=== PATIENT | male | born 1935 | race Caucasian/White ===

== ENCOUNTER 2017-11-16 11:44 | Emergency (ER) | payer MEDICARE, BC ==
--- NOTE | 2017-11-16 14:10 | ED ---
Upper Extremity Pain - HPI Summary HPI Summary: Pt presents w/ atraumatic Lt elbow pain x 3 days. Denies trauma or repetitive movement. Limited ROM w/ flexion/extension d/t pain. Mild redness - no swelling , no fever. Denies Numbness/Tingling/Weakness. He has a h/o cancer and has been taking an experimental medication for a while now w/o difficulty/side effects. He denies h/o gout but does admit his renal function is limited per previous labs. Denies h/o surgery here and no previous septic joints. His CBC has been WNL as of late - h/o leukopenia w/ cancer and tx. Has been feeling well overall. Also eventually admits to using his arms for a hobby requiring repeated motions. - History of Current Complaint Chief Complaint: EDExtremityUpper Stated Complaint: LT ARM PAIN Time Seen by Provider: 11/16/17 12:41 Hx Obtained From: Patient - Allergies/Home Medications Allergies/Adverse Reactions: Allergies Allergy/AdvReac Type Severity Reaction Status Date / Time No Known Allergies Allergy Verified 10/19/12 09:45 PMH/Surg Hx/FS Hx/Imm Hx Previously Healthy: Yes Endocrine/Hematology History: Reports: Other Endocrine/Hematological Disorders - blood cancer Denies: Hx Anticoagulant Therapy Cardiovascular History: Reports: Hx Hypercholesterolemia, Hx Hypertension History: Reports: Hx Chronic Renal Failure - stable Neurological History: Reports: Other Neuro Impairments/Disorders - 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 Infectious Disease History: No Infectious Disease History: Denies: Traveled Outside the [place] in Last 30 Days - Social History Occupation: Retired Lives: With Family - Alcohol Use: Rare Hx Substance Use: No Substance Use Type: Reports: None Hx Tobacco Use: No Smoking Status (MU): Never Smoked Tobacco Review of Systems Constitutional: Negative Negative: Fever, Chills, Fatigue Cardiovascular: Negative Negative: Palpitations, Chest Pain Respiratory: Negative Negative: Shortness Of Breath Gastrointestinal: Negative Negative: Abdominal Pain, Vomiting, Nausea Positive: no symptoms reported Positive: Arthralgia, Decreased ROM. Negative: Myalgia, Edema Skin: Other - Lt elbow redness/pain Neurological: Negative Psychological: Normal All Other Systems Reviewed And Are Negative: Yes Physical Exam Triage Information Reviewed: Yes Vital Signs On Initial Exam: Initial Vitals Temp Pulse Resp BP Pulse Ox 98.4 F 71 18 147/84 99 11/16/17 11:48 08/16/18 11:48 11/16/17 11:48 11/16/17 11:48 11/16/17 11:48 Vital Signs Reviewed: Yes Appearance: Positive: Well-Appearing, No Pain Distress, Well-Nourished Skin: Positive: Warm, Skin Color Reflects Adequate Perfusion, Dry - mild erythema over Lt elbow - temp is slightly warmer to touch compared to Rt - no lesions, no skin breakdown, no ecchymosis Head/Face: Positive: Normal Head/Face Inspection Eyes: Positive: EOMI ENT: Positive: Hearing grossly normal Respiratory/Lung Sounds: Positive: Breath Sounds Present Cardiovascular: Positive: Pulses are Symmetrical in both Upper and Lower Extremities - no UE edema Abdomen Description: Positive: Nontender, Soft Musculoskeletal: Positive: Limited @ - good ROM w/ Lt elbow however is somewhat limited w/ end range flexion/extension d/t pain, Pain @ - Lt lateral epicondyle and tendon insertion TTP - no gross deformity Neurological: Positive: Normal, Sensory/Motor Intact, Alert, Oriented to Person Place, Time, CN Intact II-III Psychiatric: Positive: Normal Diagnostics - Vital Signs Vital Signs Temp Pulse Resp BP Pulse Ox 11/16/17 11:48 98.4 F 71 18 147/84 99 - Laboratory Result Diagrams: 11/16/17 15:15 11/16/17 15:15 Lab Statement: Any lab studies that have been ordered have been reviewed, and results considered in the medical decision making process. Course/Dx - Course Course Of Treatment: Given pt's h/o cancer, evaluated for septic joint. Other tests to check for gout and injury to elbow. His uric acid level is 8.2. WBC, CRP, and LACTIC ACID are WNL. No fever, tachycardia or hypotension. With reduced renal function, provided colchicine (no adjustment for renal fxn for initial acute dose) and advised close f/u w/ PCP. He was also found to have calific tendonitis on XR which could indicate JOHNATHAN inflammation from overuse. Advised to rest, ice and elevate w/ gentle stretches and again, f/u w/ PCP. If worse, will return to ED. - Diagnoses Provider Diagnoses: Gout of left elbow, Tendonitis of elbow, left Discharge - Sign-Out/Discharge Documenting (check all that apply): Patient Departure - Discharge Plan Condition: Stable Disposition: HOME Patient Education Materials: Tennis Elbow (ED), Low Purine Diet (ED), Gout (ED) Referrals: [facility] [Outside] Additional Instructions: You were provided with 2 doses of colchicine today - a starting dose and then you will take the 2nd dose 1 hour later. You may continue to ice and try topical analgesic (ie. biofreeze) as needed for pain however it is important that you follow-up with PCP tomorrow. You additionally appear to have a tendonitis - this may be relieved by recommendation previously mentioned along with gentle stretches of your wrist and arm and rest/avoid gripping, carrying, etc. If you do not have one, you may seek follow-up through [facility], here in the hospital on the 3rd floor. Contact information provided here. *If you develop worsening of redness, swelling or pain or numbness, tingling, weakness in the meantime, return to the ED - Billing Disposition and Condition Condition: STABLE Disposition: Home
--- NOTE | 2017-11-16 14:32 | RAD ---
INDICATION: Atraumatic LEFT elbow pain. Pain and swelling in LEFT elbow without proceeding injury. COMPARISON: No relevant prior exams available on the [facility]. TECHNIQUE: AP, lateral, and oblique views LEFT elbow. REPORT: Normal articular alignment. No cortical disruption or suspicious trabecular irregularity to suggest fracture. Mild displacement of the anterior fat pad consistent with presence of a small joint effusion. Subtle amorphus calcification at the level of the radial collateral ligament at the lateral epicondyle. Mild soft tissue swelling over the lateral epicondyle likely involving the common extensor tendon origin. IMPRESSION: #. Negative for fracture. #. Stigmata of probable lateral epicondylitis. #. Small joint effusion.
[2017-11-16 15:22] LABS: ABS Basophils 0.1 10^3/ul (0-0.2); ABS Eosinophils 0.1 10^3/ul (0-0.6); ABS Lymphocytes 1.9 10^3/ul (1.0-4.8); ABS Monocytes 0.6 10^3/ul (0-0.8); ABS Neutrophils 4.5 10^3/ul (1.5-7.7); ABS Nucleated RBC 0 10^3/ul; Hematocrit 41 % (42-52); Hemoglobin 13.6 g/dl (14.0-18.0); Lymphocyte % 26.8 % (25-47); Mean Corpuscular HGB Conc 33 g/dl (31-36); Mean Corpuscular Hemoglobin 31 pg (27-31); Mean Corpuscular Volume 94 fL (80-94); Mean Platelet Volume 10.2 um3 (7.4-10.4); Nucleated Red Blood Cells % 0.1; Platelet Count 109 10^3/ul (150-450); Red Blood Count 4.34 10^6/ul (4.00-5.40); Red Cell Distribution Width 14 % (10.5-15); White Blood Count 7.2 10^3/ul (3.5-10.8)
[2017-11-16 15:42] LABS: EGFR Non-African American 44.9 (>60); Uric Acid 8.2 mg/dL (4.4-7.6)
[2017-11-16] MEDS ORDERED: Colchicine* 0.6 MG TAB PO ONE (17:30)
[2017-11-16 17:35] VITALS: BP 150/77
[2017-11-17] MEDS ORDERED: Colchicine* 0.6 MG TAB PO SCH (09:00)
== END 2017-11-16 17:34 | disposition home or self-care (01) ==
LOC: ED 11:44
DX: M10.022 Idiopathic gout, left elbow (principal); M77.12 Lateral epicondylitis, left elbow
CPT/HCPCS: 36415; 80053; 83605; 84550; 85025; 85652; 86140; 99282

== ENCOUNTER 2018-12-01 21:03 | Emergency (ER) | payer MEDICARE, BC ==
--- NOTE | 2018-12-01 23:08 | ED ---
Lower Extremity - HPI Summary HPI Summary: Patient complains of right foot pain along the sole of his foot 3 weeks. Patient has been evaluated by reinforcing rod layer and was recommended to get orthotics initial. Patient states pain improved after orthotics however patient felt he stepped wrong on his foot tonight and had a sudden increase in same pain. Patient now states he cannot bear weight. Patient took naproxen at 7:00 PM tonight with no improvement. Denies any other pain injury or symptoms. - History of Current Complaint Chief Complaint: EDExtremityLower Stated Complaint: RT FT INJURY PER PT Time Seen by Provider: 12/01/18 23:06 Hx Obtained From: Patient Mechanism Of Injury: Unknown Onset of Pain: Immediate Onset/Duration: Weeks Severity Currently: Moderate Pain Intensity: 4 Pain Scale Used: 0-10 Numeric Timing: Constant Location: Is Discrete @ Character Of Pain: Sharp, Dull, Aching, Throbbing Associated Signs And Symptoms: Positive: Negative Aggravating Factor(s): Standing, Weight Bearing Alleviating Factor(s): Rest, Elevation Able to Bear Weight: No - Allergies/Home Medications Allergies/Adverse Reactions: Allergies Allergy/AdvReac Type Severity Reaction Status Date / Time No Known Allergies Allergy Verified 12/01/18 21:24 Home Medications: Home Medications Acalabrutinib [Calquence] 100 mg PO BID 12/01/18 [History Confirmed 12/01/18] Aspirin 81 mg CHEW TAB* [Aspirin Low Dose TAB*] 81 mg PO DAILY 12/01/18 [ History Confirmed 12/01/18] Cholecalciferol (Vitamin D3) [Vitamin D3] 2,000 unit PO DAILY 12/01/18 [History Confirmed 12/01/18] Hydrocodone/Acetaminophen [Hydrocodone Bitartrate/AC] 1 tab PO DAILY PRN [History Confirmed 12/01/18] Latanoprost/Pf [Latanoprost 0.005% Eye Drop] 7.5 ml BOTH EYES DAILY 12/01/18 [ History Confirmed 12/01/18] Losartan TAB* [Cozaar TAB*] 50 mg PO DAILY 12/01/18 [History Confirmed 12/01/18] Metoprolol Succinate [Metoprolol Succinate ER] 12.5 mg PO DAILY 12/01/18 [ History Confirmed 12/01/18] Omeprazole 20 mg PO DAILY 12/01/18 [History Confirmed 12/01/18] Rosuvastatin Calcium [Crestor] 5 mg PO DAILY 12/01/18 [History Confirmed ] Rotigotine [Neupro] 2 mg TRANSDERM DAILY 12/01/18 [History Confirmed 12/01/18] Valacyclovir HCl [Valacyclovir] 500 mg PO DAILY 12/01/18 [History Confirmed ] hydroCHLOROthiazide [Hydrochlorothiazide] 25 mg PO DAILY 12/01/18 [History Confirmed 12/01/18] PMH/Surg Hx/FS Hx/Imm Hx Endocrine/Hematology History: Reports: Other Endocrine/Hematological Disorders - blood cancer Denies: Hx Anticoagulant Therapy Cardiovascular History: Reports: Hx Hypercholesterolemia, Hx Hypertension History: Reports: Hx Chronic Renal Failure - stable Sensory History: Denies: Hx Legally Blind Opthamlomology History: Denies: Hx Eye Prosthesis Neurological History: Reports: Other Neuro Impairments/Disorders - 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 Denies: Hx Developmental Delay Infectious Disease History: No Infectious Disease History: Denies: Traveled Outside the [place] in Last 30 Days - Family History Known Family History: Positive: Non-Contributory - Social History Alcohol Use: Rare Hx Substance Use: No Substance Use Type: Reports: None Hx Tobacco Use: No Smoking Status (MU): Never Smoked Tobacco Review of Systems Constitutional: Negative Eyes: Negative ENT: Negative Cardiovascular: Negative Respiratory: Negative Gastrointestinal: Negative Genitourinary: Negative Musculoskeletal: Other Skin: Negative Neurological: Negative Psychological: Normal All Other Systems Reviewed And Are Negative: Yes Physical Exam - Summary Physical Exam Summary: No ecchymosis, erythema, deformity, swelling to right foot. No extra warmth. PMS intact. Pain with general pressure over the area of the heel. Otherwise no tenderness to palpation of right foot. Triage Information Reviewed: Yes Vital Signs On Initial Exam: Initial Vitals Temp Pulse Resp BP Pulse Ox 97.2 F 70 16 120/73 97 12/01/18 21:20 12/01/18 21:20 12/01/18 21:20 12/01/18 21:20 12/01/18 21:20 Vital Signs Reviewed: Yes Appearance: Positive: Well-Appearing Skin: Positive: Warm Head/Face: Positive: Normal Head/Face Inspection Eyes: Positive: Normal ENT: Positive: Normal ENT inspection Neck: Positive: Supple Respiratory/Lung Sounds: Positive: Clear to Auscultation Cardiovascular: Positive: Normal Abdomen Description: Positive: Nontender Musculoskeletal: Positive: Normal Neurological: Positive: Normal Psychiatric: Positive: Normal AVPU Assessment: Alert - Agustin Coma Scale Best Eye Response: 4 - Spontaneous Best Motor Response: 6 - Obeys Commands Best Verbal Response: 5 - Oriented Coma Scale Total: 15 Diagnostics - Vital Signs Vital Signs Temp Pulse Resp BP Pulse Ox 12/01/18 21:20 97.2 F 70 16 120/73 97 - Laboratory Lab Statement: Any lab studies that have been ordered have been reviewed, and results considered in the medical decision making process. Lower Extremity Course/Dx - Course Course Of Treatment: Patient complains of right foot pain along the sole of his foot 3 weeks. Patient has been evaluated by reinforcing rod layer and was recommended to get orthotics initial. Patient states pain improved after orthotics however patient felt he stepped wrong on his foot tonight and had a sudden increase in same pain. Patient now states he cannot bear weight. Patient took naproxen at 7:00 PM tonight with no improvement. Denies any other pain injury or symptoms. Vital signs within normal limits. X-ray right foot unremarkable. Advised follow-up with podiatry - Diagnoses Provider Diagnoses: Right foot injury Discharge ED - Sign-Out/Discharge Documenting (check all that apply): Patient Departure Patient Received Moderate/Deep Sedation with Procedure: No - Discharge Plan Condition: Stable Disposition: HOME Patient Education Materials: Foot Sprain (ED) Referrals: No Primary Care Phys,NOPCP [Primary Care Provider] - Additional Instructions: Weightbearing as tolerated. Take oxycodone as directed for pain if needed. Follow-up with your reinforcing rod layer for further evaluation. - Billing Disposition and Condition Condition: STABLE Disposition: Home
[2018-12-01] MEDS ORDERED: oxyCODONE TAB* 5 MG TAB PO ONE (23:17)
[2018-12-02 00:43] VITALS: BP 126/48
== END 2018-12-02 00:33 | disposition home or self-care (01) ==
LOC: ED 21:03
DX: S99.921A Unspecified injury of right foot, initial encounter (principal); X50.0XXA Overexertion from strenuous movement or load, initial encounter; Y92.9 Unspecified place or not applicable; E78.00 Pure hypercholesterolemia, unspecified; I10 Essential (primary) hypertension; N18.9 Chronic kidney disease, unspecified
CPT/HCPCS: 99282; A9270-GY